=== PATIENT | male | born 1975 | race Caucasian/White ===

== ENCOUNTER 2020-05-26 06:51 | Day surgery (SDC) | payer OTHER, SELFPAY ==
--- NOTE | 2020-05-25 11:06 | HO.ANESPROP2 ---
Documented by User: Erika Torres 05/25/20 11:07 FORMERLY [facility], [facility]–1983 Past Medical History Medical History (Updated 05/26/20 @ 07:58 by Faith Beckham) Back pain Burning with urination Chronic idiopathic constipation High cholesterol Social History Social History Smoking Status: Never smoker Use of substances other than those prescribed or required for medical reasons: No Advance Directives: No Recently lost weight without trying: No Meds Allergies Allergy/AdvReac Type Severity Reaction Status Date / Time No Known Allergies Allergy Verified 05/26/20 06:59 Home Medications Medication Instructions Recorded Confirmed Type atorvastatin 1 tab PO DAILY 05/24/20 05/24/20 History dicyclomine 1 cap PO DAILY PRN 05/24/20 05/24/20 History nabumetone 1 tab PO BID 05/24/20 05/24/20 History plecanatide [Trulance] 1 tab PO DAILY 05/24/20 05/24/20 History tamsulosin 1 cap PO DAILY 05/24/20 05/24/20 History Exam Exam Date and Time: May 25, 2020 1106 Assessment and Plan Assessment Anesthesia Assessment: Chart Reviewed Documented by User: Faith Beckham 05/26/20 07:59 FOR[facility]LY [facility], [facility] Past Medical History Medical History (Updated 05/26/20 @ 07:58 by Faith Beckham) Back pain Burning with urination Chronic idiopathic constipation High cholesterol Family History Family history of problems with anesthesia: No Surgical History History of Problems with Anesthesia: No Social History Social History Smoking Status: Never smoker Use of substances other than those prescribed or required for medical reasons: No Advance Directives: No Recently lost weight without trying: No Meds Allergies Allergy/AdvReac Type Severity Reaction Status Date / Time No Known Allergies Allergy Verified 05/26/20 06:59 Home Medications Medication Instructions Recorded Confirmed Type atorvastatin 1 tab PO DAILY 05/24/20 05/24/20 History dicyclomine 1 cap PO DAILY PRN 05/24/20 05/24/20 History nabumetone 1 tab PO BID 05/24/20 05/24/20 History plecanatide [Trulance] 1 tab PO DAILY 05/24/20 05/24/20 History tamsulosin 1 cap PO DAILY 05/24/20 05/24/20 History Exam Height,Weight and Vital Signs: Vital Signs Temp Pulse Resp BP Pulse Ox 05/26/20 07:07 98.8 F 80 16 140/95 H 99 Airway Mallampati Class: II TM Dist: >3cm Neck ROM: Full Loose/Missing/Broken Teeth: Yes (Missing 2 top and 2 bottom teeth) Heart: RRR Lungs: CTAB Assessment and Plan Assessment Anesthesia Assessment: Anesthesia Plan Discussed and Chart Reviewed Final Anesthetic Review NPO: Yes ASA Class: II Final Preanesthetic Review: No Changes in Pt Med Stat, Meds/Allgs Chart Reviewed, Consent Obtained/Reviewed and Anes Risks/Benef Reviewed Patient Risk: Low Procedure Risk: Low Anesthetic Plan Anesthetic Plan: MAC: Disposition: Standard PACU
[2020-05-26 07:07] VITALS: BP 140/95; PULSE 80; RESP 16; TEMP 37.1; O2SAT 99
[2020-05-26 07:19] VITALS: BMI 29.5
[2020-05-26] MEDS: Lactated Ringers 1,000 ML 100 ML IVCONT (07:38)
--- NOTE | 2020-05-26 08:30 | P.HPSUR_ITS ---
Pre-Procedural Eval Section B Chief Complaint: HX OF DIVERTICULITIS Relevant Family History (Specify if Yes): No Relevant Social History: None Present Medications: see Short Stay Collaborative assessment Medical History: Significant History (back pain) History of Previous Operations: No relevant previous surgery Allergies: Allergies Allergy/AdvReac Type Severity Reaction Status Date / Time No Known Allergies Allergy Verified 05/26/20 06:59 Review of Systems Sugical H&P ROS: Negative: Constitution, Cardiovascular, Respiratory, Neurological, Psychiatric, Hem-Onc, Allergic/Immunologic, Gastrointestinal, Genitourinary, Musculoskeletal, Integumentary, Endocrine and Eyes/Ears/Nose/T hroat Exam Surgical H&P Exam: Normal: HEENT, Normal: Heart, Normal: Lungs, Normal: Extremities, Normal: Abdomen, Normal: Skin and Normal: Neurological Plan Diagnosis/Plan: Unchanged Patient has been examined and remains a candidate for the planned procedure
--- NOTE | 2020-05-26 09:13 | P.OP_ITS ---
Operative Note Operative Note Narrative: Operative Information Procedure Description: Colonoscopy COLONOSCOPY Instrument: Olympus variable stiffness pediatric scope 190L Colonoscopy Monitoring: Vital signs and clinical assessment, continuous EKG monitoring, Pulse oximetry, Carbon Dioxide monitoring and blood pressure monitoring were done throughout the procedure. Colon withdrawal time was 13 minutes. Procedure: The patient was placed in the left lateral decubitis position and pre-procedure medications were administered. After a digital rectal examination of the ano-rectum, the video colonoscope was inserted into the rectum and advanced through the colon to the cecum/TI. The colonoscope was slowly withdrawn in a retrograde panoramic fashion and the colon mucosa was carefully examined including a retroflexed view of the rectum. Findings and interventions are described below. Procedure Difficulty: easy Findings: bx taken from TI and random colon bernard diverticulosis noted, with wide mouthed tics, worse in sigmoid Terminal Ileum-normal Cecum: 6 mm sessile polyp removed with forceps Ascending Colon: normal Transverse Colon -normal Descending Colon:normal Sigmoid Colon: normal Rectum: Retroflexion with moderate sized internal hemorrhoids, grade I Anorectum - normal Colon preparation: [place] Bowel Preparation Scale Right colon; 3 Transverse colon: 3 Left colon; 1 (0 = Unprepared colon segment with mucosa not seen due to solid stool that cannot be cleared. 1 = Portion of mucosa of the colon segment seen, but other areas of the colon segment not well seen due to staining, residual stool and/or opaque liquid. 2 = Minor amount of residual staining, small fragments of stool and/or opaque liquid, but mucosa of colon segment seen well. 3 = Entire mucosa of colon segment seen well with no residual staining, small fragments of stool or opaque liquid) Impression and Post Procedure Diagnosis: moderate severe diverticulosis internal hemorrhoids polyp Plan: High fiber diet leaflet Avoid straining at stool , epsom salts and sitz bath prn, anusol supps or cream prn Repeat Colonoscopy in 5-10 years pending pathology or earlier if clinically indicated Above findings were reviewed with the patient and relevant handouts were provided if indicated.
--- NOTE | 2020-05-26 09:13 | PM.OP ---
Brief Operative Note Date of procedure: 05/26/20 Pre-op diagnosis: constipation, diverticular disease Post-op diagnosis: same Procedure: see op note Surgeon: Carola Coello MD Anesthesia: MAC Estimated blood loss (mL): 0 Condition: stable Disposition: PACU
[2020-05-26 09:19] VITALS: BP 98/64; PULSE 74; RESP 16; TEMP 36.6; O2SAT 99
[2020-05-26 09:34] VITALS: BP 109/73; PULSE 68; RESP 20; O2SAT 98
[2020-05-26 09:49] VITALS: BP 123/81; PULSE 74; RESP 20; O2SAT 97
--- NOTE | 2020-05-26 09:54 | HO.POSTANES ---
Post Anesthesia Evaluation Post Anesthesia Evaluation Vital Signs: Vital Signs Temp Pulse Resp BP Pulse Ox 05/26/20 09:34 68 20 109/73 98 05/26/20 09:19 97.8 F 74 16 98/64 99 05/26/20 07:07 98.8 F 80 16 140/95 H 99 Anesthesia: Monitored Mental Status: Awake Pain Control: Satisfactory Nausea/Vomiting: None Hydration: Adequate Anesthesia-Related Issues: No Anes. Related Issues
== END 2020-05-26 23:59 | disposition home or self-care (01) ==
PROVIDERS: PCP Internal Medicine; Visit Provider Internal Medicine Gastroenterology
PROC: 0DJD8ZZ Inspection of Lower Intestinal Tract, Via Natural or Artificial Opening Endoscopic (ICD-10-PCS; CPT 45378; principal; 2020-05-26 08:30)
DX: K59.04 Chronic idiopathic constipation (principal); Z87.19 Personal history of other diseases of the digestive system; D12.0 Benign neoplasm of cecum; K57.30 Diverticulosis of large intestine without perforation or abscess without bleeding; K64.0 First degree hemorrhoids; Z79.899 Other long term (current) drug therapy
CPT/HCPCS: 45380; 88305

== ENCOUNTER → 2020-07-05 11:49 | Outpatient (BNVA) | payer OTHER, SELFPAY | PROVIDERS: PCP Internal Medicine; Visit Provider Internal Medicine Gastroenterology | DX: Z76.89 Persons encountering health services in other specified circumstances (principal) ==

== ENCOUNTER 2022-05-01 06:04 | Outpatient (REF) | payer OTHER, SELFPAY ==
--- NOTE | ~2022-05-01 | FL_ITS ---
EXAMINATION: XR FLUOROSCOPY WITH IMAGES CLINICAL INFORMATION: M46.1 - Sacroiliitis, not elsewhere classified COMPARISON: CT pelvis 07/01/2019 TECHNIQUE: Fluoroscopy performed by Dr. Lit Stiles. Fluoroscopy time: 0.6 minutes. Cumulative Dose: 9.94 mGy. DAP: 2.71 Gy-cm2. Images: 2. FINDINGS: Spinal needle overlies the mid right SI joint and mid to lower left SI joint. There is contrast in the periarticular soft tissues with probable early intra-articular contrast. No vasculature communication appreciated. FL/FL guidance in treatment room IMPRESSION: Fluoroscopy for pain management procedure.
== END 2022-05-01 06:05 | disposition home or self-care (01) ==
LOC: CF 06:04
PROVIDERS: Visit Provider Anesthesiology
DX: M46.1 Sacroiliitis, not elsewhere classified (principal); M47.817 Spondylosis without myelopathy or radiculopathy, lumbosacral region; M51.36 Other intervertebral disc degeneration, lumbar region
CPT/HCPCS: 27096

== ENCOUNTER → 2022-10-29 09:37 | Outpatient (BNVA) | payer OTHER, SELFPAY | PROVIDERS: PCP Internal Medicine; Visit Provider Anesthesiology | DX: Z13.89 Encounter for screening for other disorder (principal) ==

== ENCOUNTER 2022-12-04 06:12 | Outpatient (REF) | payer OTHER, SELFPAY ==
--- NOTE | ~2022-12-04 | FL_ITS ---
EXAMINATION: XR FLUOROSCOPY WITH IMAGES CLINICAL INFORMATION: Chronic pain syndrome. COMPARISON: None available. TECHNIQUE: Fluoroscopy Supervised By: Dr. Lit Stiles. Fluoroscopy Time: 0.5 minutes. Cumulative Dose: 8.43 mGy. DAP: 2.29 Gycm2. Images: 6. FINDINGS: [place] and contrast are seen lateral to L4, L5, and S1 bilaterally. Contrast is seen within the soft tissues and nerve roots. FL/FL guidance in treatment room IMPRESSION: Intraoperative fluoroscopy for pain management procedure.
== END 2022-12-04 06:13 | disposition home or self-care (01) ==
LOC: CF 06:12
PROVIDERS: Visit Provider Anesthesiology
DX: M47.817 Spondylosis without myelopathy or radiculopathy, lumbosacral region (principal); G89.4 Chronic pain syndrome; M54.9 Dorsalgia, unspecified; M46.1 Sacroiliitis, not elsewhere classified; M51.36 Other intervertebral disc degeneration, lumbar region
CPT/HCPCS: 64493; 64494; J2795

== ENCOUNTER → 2022-12-10 14:18 | Outpatient (BNVA) | payer OTHER, SELFPAY | PROVIDERS: PCP Internal Medicine; Visit Provider Anesthesiology ==

== ENCOUNTER 2023-03-11 09:50 | Outpatient (AMB) | payer OTHER, SELFPAY ==
--- NOTE | 2023-03-11 10:00 | MHC.OFFVIS ---
Intake Vital Signs 03/11/23 10:05 Height 5 ft 9 in Weight 214 lb 4 oz BMI 31.6 BP 124/80 Blood Pressure Location Lt brachial Position Sitting Respiration 16 Pulse 77 Pulse Source Pulse Oximeter Pulse Oximetry (%) 97 Oxygen Delivery Method Room Air Intake Visit Reasons: f/u after insur denied Sprint procedure Allergies No Known Allergies Allergy (Verified 03/11/23 10:05) HPI HPI Comments History of Present Illness Details Blas is in my office following the insurance denial of the sprint procedure. His insurance company considered experimental. The only thing I can offer to the patient is radiofrequency ablation of medial branches L3-L4 dorsal ramus L5 bilateral. Unfortunately the patient refused to go for this procedure. He said that in [facility] he received radiofrequency ablation and it was not helpful. Results of diagnostic injection bilateral L3- L4- L5. He reports 2 full days almost complete pain relieve after this diagnostic procedure and 7 days after that he felt very mild pain. The pain came back only on the day 9.. He reports better mobility, better activities of daily living, better social interactions. The procedure was performed on 12/04/2022. . Prior: fter the MRI which was performed for him on 09/22/2022.? He was sent to MRI of the lumbar spine after failure of the sacroiliac joint bilateral injections to alleviate his pain in proper extent.? See as below.? Also he had the in [facility] diagnostic MBB and RFA which did not result according to the patient into the significant pain improvement.? Dictation of the MRI see as below.? I was hoping with that there will be some disc protrusions demonstrated on MRI and or ligamentum flavum thickening which could explain this patient's condition.? However no central canal stenosis was demonstrated on the MRI.? In this situation I can offer him only diagnostic L3-L4 does ramus L5 medial branch block and compare those results with the results of the sacroiliac joint injection.? We probably can repeat iliac joint injection 1 more time to make sure that we properly ruled out sacroiliac joint as a source of his pain. Prior:? Results of? diagnostic bilateral sacroiliac joint injection:? He reports the pain before the injection was 6/10.? He reports that immediately after the procedure pain became 1/10, 1 hour after the procedure the pain was 2/10.? However 4 hours after the procedure the pain became 4/10.? And 5 hours after the procedure pain returned to the baseline 6/10.? The patient himself describes as the pain relief as [id number] and less than dramatic.? Obviously the pain of this patient is multifactorial in nature.? Possibility exists that sacroiliitis is part of his pain.? However it looks like that some other pain generators are involved in his case.? On the MRI he has significant L4-5 L5-S1 disc degeneration with protrusions, see whole description below.? On physical exam bending forward aggravates his pain more than bending backwards.? He reports pain severe when he is standing and walking.? 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 He was a subject of diagnostic medial branch block and after that radiofrequency ablation of lower lumbar spine in [facility].? He reports no good pain control after that injection.? Bending backwards does not aggravate pain of this patient and although there are significant changes in the lower lumbar facet joints especially at L4-5 level I do not think the facet joints are the major pain generators for this patient.? Discogenic pain cannot be excluded in his case.? He reports that his pain lately became aggravated, he experiences pain more frequently and the pain is more intense than previously in 2019 when he had his MRI done. [facility] Medical History (Updated 04/02/22 @ 10:28 by Lit Stiles MD) Back pain Burning with urination Chronic idiopathic constipation High cholesterol Surgical History (Updated 07/05/20 @ 11:55 by MANNY Oscar) Hx of colonoscopy Family History (Updated 07/05/20 @ 11:52 by MANNY Oscar) Mother Diabetes HTN (hypertension) Heart problem Maternal Uncle Colon cancer Social History (Updated 07/05/20 @ 11:51 by MANNY Oscar) Alcohol intake: current Alcohol intake frequency: a few times a month Alcohol type: beer Review of Systems Const All systems reviewed & are unremarkable except as noted in HPI and below ENT Reports Normal hearing present Neuro Reports Normal hearing present, Denies Abnormal speech present and Denies Sensory deficit (Neuro) Physical Exam Vital Signs: Last Vital Signs Pulse 77 03/11/23 10:05 Resp 16 08/21/23 10:05 BP 124/80 03/11/23 10:05 Pulse Ox 97 03/11/23 10:05 Oxygen Delivery Method Room Air 03/11/23 10:05 BMI result Body Mass Index 31.6 Const General: no acute distress Nutritional Appearance: obese morbidly obese Orientation/consciousness: patient oriented x3 Eyes General: appearance normal, both eyes and all related structures Pupils: Equal, round and reactive pupils present EOM: EOMs intact bilaterally Neck Neck: Yes full ROM Chest Chest palpation & inspection: normal inspection of the chest Resp Effort & Inspection: normal respiratory effort, able to speak in complete sentences, normal respiratory pattern, no audible wheezes and no cough Cardio Jugular venous distension: no JVD GI Inspection: Yes normal to inspection Back/Spine/Pelvis Other: He is able to stand on bilateral tiptoes and bilateral heels without difficulty however reports the pain exacerbation in the lower back. He is able to lift his great toe on bilateral feet separately from the rest of the toes. That demonstrates normal muscular strength of bilateral lower extremities. Demonstrates L4-5 S1- nerve roots grossly intact. The mobility is not compromised the gait is steady and stable. He is able to perform SLR bilaterally without difficulty he denies pain aggravation on the right however admits pain aggravation on the left. Patrice test unable to perform due to pain grossly exacerbated. Pelvic compression test and pelvic distension test both positive for pain increase. [place] test is positive bilaterally. Tenderness of palpation paraspinal spinal regions mostly at the area L5-S1 and S2. Tenderness of palpation on bilateral sacroiliac joint projection to the skin. Neuro General: patient oriented x3 and gait normal Cranial nerves: Yes Equal, round and reactive pupils present and Yes Normal hearing present Speech: No Abnormal speech present Gait exam (Neuro): Normal gait present Motor exam (neuro): 5/5 motor strength present throughout Sensory Exam: No Sensory deficit (Neuro) Extrem General: No pedal edema Psych Speech and movement: Normal speech and movement present Affect: normal affect Attitude: cooperative Thought process: Normal thought process present Thought content: Normal thought content present Insight: Good insight present (Psych) Judgement: Good judgement present (Psych) Assessment & Plan Assessment & Plan (1) Back pain: Code(s): M54.9 - Dorsalgia, unspecified (2) Sacroiliitis: Code(s): M46.1 - Sacroiliitis, not elsewhere classified (3) Spondylosis of lumbosacral region without myelopathy or radiculopathy: Code(s): M47.817 - Spondylosis without myelopathy or radiculopathy, lumbosacral region (4) Disc degeneration, lumbar: Code(s): M51.36 - Other intervertebral disc degeneration, lumbar region (5) Chronic pain syndrome: Code(s): G89.4 - Chronic pain syndrome Plan The results of the diagnostic sacroiliac joint injections for this patient are equivocal. He had about 3 hours of good pain relieve after the injection however after that the pain became more severe. It does not correspond to 5-6 hours at least the patient should report on ropivacaine injection into sacroiliac joints. Sometimes it lasts longer. In his case it was not. On the MRI as above there is some disc bulging and protrusions however there is no described nerve root compressions. There is no central canal stenosis. There is significant arthritis. Diagnostic L3, L4, dorsal ramus L5 medial branch blocks resulted in complete pain relief for 100 % for the 1st 2 days. The pain is now coming back however it is still very mild. We discussed sprint PNS and I scheduled him however his insurance company denied payment for Sprint PN S. I offered him today L3-L4 DR L5 MB RFA however patient said that he had it before in [facility] and that was not helpful . I told him that short of that there is very little I can help him with. He decided to go to primary care physician to consider some medical pain management. No new appointment. Coding Level of Care Code Est Pt Level 4 (93163) Diagnoses Back pain M54.9 Sacroiliitis M46.1 Spondylosis of lumbosacral region without myelopathy or radiculopathy M47.817 Disc degeneration, lumbar M51.36 Chronic pain syndrome G89.4
[2023-03-11 10:05] VITALS: BP 124/80; PULSE 77; RESP 16; O2SAT 97; BMI 31.6
== END 2023-03-11 10:42 | disposition home or self-care (01) ==
PROVIDERS: PCP Internal Medicine; Visit Provider Anesthesiology
DX: G89.4 Chronic pain syndrome (principal); M46.1 Sacroiliitis, not elsewhere classified; M47.817 Spondylosis without myelopathy or radiculopathy, lumbosacral region; M51.36 Other intervertebral disc degeneration, lumbar region; M54.9 Dorsalgia, unspecified
CPT/HCPCS: 99213

== ENCOUNTER → 2023-03-11 09:50 | Outpatient (BNVA) | payer OTHER, SELFPAY | PROVIDERS: PCP Internal Medicine; Visit Provider Anesthesiology ==

== ENCOUNTER 2023-04-05 09:13 | Outpatient (REF) | payer OTHER, SELFPAY ==
[2023-04-05 11:26] LABS: Anion Gap 11 (12-20); Blood Urea Nitrogen 13 mg/dL (9-16); Calcium 9.5 mg/dL (8.4-10.2); Carbon Dioxide 28 mmol/L (22-29); Chloride 104 mmol/L (96-108); Estimated Glomerular Filt Rate > 60; Glucose Random 111 mg/dL (60-115); Potassium 3.8 mmol/L (3.3-5.1); Sodium 139 mmol/L (135-145)
[2023-04-05 12:30] LABS: Estimated Average Glucose 114 mg/dL; Hemoglobin A1c % 5.6 % (<6.0)
== END 2023-04-05 09:14 | disposition home or self-care (01) ==
LOC: HO.10HDL 09:13
PROVIDERS: Visit Provider Anesthesiology
DX: G89.4 Chronic pain syndrome (principal)
CPT/HCPCS: 36415; 80048; 83036